=== PATIENT | male | born 1985 | race African-American/Black ===

== ENCOUNTER 2016-07-03 11:49 | Emergency (ER) | payer MEDICAID ==
[~2016-07-03] VITALS: Ht 167.6 cm; Wt 77.5 kg
[2016-07-03 11:59] VITALS: Ht 167.6 cm; Wt 77.5 kg
[2016-07-03] MEDS ORDERED: ACET325T33 PO (14:23)
[2016-07-03] MEDS ORDERED: AMOX1TAB9 PO (14:23)
--- NOTE | 2016-07-03 14:28 | ERD ---
ER Documentation Chief Complaint Date/Time DATE: 07/03/16 TIME: 14:26 Chief Complaint tooth ache HPI Is a 31-year-old male presenting to the emergency department complaining of left upper tooth pain that started today. Patient rates the pain 8 out of 10. He states that he has an associated headache with it. Patient states that he saw a dentist 9 months ago and got a feeling he thinks filling came out. Patient denies any fevers. Denies any medical problems ROS All systems reviewed and are negative except as per history of present illness. Medications Home Meds Active Scripts Acetaminophen* (Tylenol*) 325 Mg Tablet, 2 TAB PO Q6 Y for PAIN AND OR ELEVATED TEMP, #20 TAB Prov:DEBORAH MIDDLETON PA-C 07/03/16 Amoxicillin/Potassium Clav (Amox-Clav 500-125 mg Tablet) 500-125 mg Tab, 1 TAB PO BID for 7 Days, TAB Prov:DEBORAH MIDDLETON PA-C 07/03/16 Allergies Allergies: Coded Allergies: No Known Allergy (Unverified , 07/03/16) Physical Exam Vitals Vital Signs Date Time Temp Pulse Resp B/P Pulse Ox O2 Delivery O2 Flow Rate FiO2 07/03/16 11:59 97.2 80 20 126/75 100 Physical Exam Const: Well-developed well-nourished no acute distress Head: Atraumatic, no facial swelling. Tender palpation in the left upper molars Eyes: Normal Conjunctiva ENT: Did not note any dental abscess or facial swelling Neck: Full range of motion..~ No meningismus. Resp: Clear to auscultation bilaterally Cardio: Regular rate and rhythm, no murmurs Abd: Soft, non tender, non distended. Normal bowel sounds Skin: No petechiae or rashes Back: No midline or flank tenderness Ext: No cyanosis, or edema Neur: Awake and alert Psych: Normal Mood and Affect Procedures/MDM This is a 31-year-old male presenting to the ER complaining of a dental pain in the left upper molars, I will empirically treat patient with antibiotics Augmentin for possible dental infection. Patient was instructed to follow-up with the dentist tomorrow for further evaluation management. I will low suspicion for deep space infection, orbital cellulitis. Orbital cellulitis due to physical examination. Patient has stable vital signs he is afebrile for discharge. Discussed return to the ER for any worsening signs or symptoms. He understands and agrees with this plan Departure Diagnosis: Primary Impression: Pain, dental Condition: Stable Patient Instructions: Dental Pain Referrals: [facility] ([facility]) Additional Instructions: FOLLOW UP WITH YOUR DENTIST TOMORROW.Return to this facility if you are not improving as expected. Take all medicines as directed. Return to this facility if you are not improving as expected. DEBORAH MIDDLETON PA-C Jul 03, 2016 14:28
== END 2016-07-03 14:24 | disposition home or self-care (01) ==
LOC: E/R 11:49
DX: K08.89 Other specified disorders of teeth and supporting structures (principal)
CPT/HCPCS: 99283